=== PATIENT | female | born 1975 | race Caucasian/White ===

== ENCOUNTER 2019-04-28 13:55 | Inpatient (IN) | payer BC ==
[~2019-04-28] VITALS: Ht 170.2 cm; Wt 64.0 kg
--- NOTE | 2019-04-28 14:00 | NUR ---
BIBRA FROM HOME C/O ALTERED PER REPORT PT IS UNRESPONSIVE, LAST KNOWN PER 1 HOUR AGO, BG 140, TO ER BED 11, HOOKED TO EDUCATIONAL INTERPRETER AND POX, CHANGED TO HOSP GOWN, WARM BLABKET PROVIDED, AWAITING MD CH.
--- NOTE | 2019-04-28 14:02 | NUR ---
DR CASTRO AT BEDSIDE
[2019-04-28] MEDS ORDERED: NALOXONE HCL 0.4 MG/ML AMPUL ONE (14:21)
[2019-04-28 14:22] LABS: BASOPHILS % (AUTO) 0.4 % (0.0-2.0); EOSINOPHILS % (AUTO) 0.1 % (0.0-6.0); HEMATOCRIT 42 % (33-45); HEMOGLOBIN 14.3 g/dL (11.5-14.8); LYMPHOCYTES # (AUTO) 1.5 /CMM (0.8-4.8); LYMPHOCYTES % (AUTO) 13.4 % (20.0-44.0); MEAN CORPUSCULAR HGB CONC 34 g/dl (31.0-36.0); MEAN CORPUSCULAR VOLUME 101 fL (82-100); MONOCYTES # (AUTO) 0.8 /CMM (0.1-1.30); MONOCYTES % (AUTO) 7.6 % (2.0-12.0); NEUTROPHILS # (AUTO) 8.5 /CMM (1.8-8.9); NEUTROPHILS % (AUTO) 78.5 % (43.0-81.0); PLATELET COUNT (AUTO) 344 /CMM (150-450); RED BLOOD CELL COUNT(AUTO) 4.21 MIL/uL (4.0-5.2); WHITE BLOOD COUNT (AUTO) 10.8 K/uL (4.3-11.0)
--- NOTE | 2019-04-28 14:26 | NUR ---
NARCAN DISCONTINUED. PT VERBALLY RESPONSIVE
[2019-04-28] MEDS ORDERED: NALOXONE HCL 0.4 MG/ML AMPUL IV ONE (14:30)
[2019-04-28 14:31] LABS: CALCIUM, SERUM 9.2 mg/dL (8.5-10.1); CARBON DIOXIDE 23 mmol/L (21-32); CHLORIDE 99 mmol/L (98-107); GLUCOSE 135 mg/dL (74-106); POTASSIUM 3.7 mmol/L (3.5-5.1); SODIUM SERUM 136 mmol/L (136-145); UREA NITROGEN, BLOOD 11 mg/dL (7-18)
[2019-04-28 14:36] LABS: ALANINE AMINOTRANSFERASE 50 U/L (12-78); ALBUMIN 4.4 g/dL (3.4-5.0); ALKALINE PHOSPHATASE 64 U/L (46-116); ASPARTATE AMINOTRANSFERASE 30 U/L (15-37); BILIRUBIN,DIRECT 0.2 mg/dL (0.0-0.2); BILIRUBIN,TOTAL 0.8 mg/dL (0.2-1.0); TOTAL PROTEIN, SERUM 8.3 g/dL (6.4-8.2)
[2019-04-28 14:41] LABS: APPEARANCE,URINE Turbid (CLEAR); BILIRUBIN,URINE Negative (NEGATIVE); BLOOD, URINE Trace-intact Ery/uL (NEGATIVE); COLOR,URINE Yellow (YELLOW); KETONES,URINE 15 (NEGATIVE); LEUKOCYTE ESTERASE ,URINE Small (NEGATIVE); NITRITE, URINE Negative (NEGATIVE); PH,URINE 6.5 (5.0-8.0); PROTEIN,URINE 30 mg/dl (NEGATIVE); UGLUCOSE Negative (NEGATIVE)
[2019-04-28 14:42] LABS: ACETAMINOPHEN 0 ug/ml (10-30); ALCOHOL, BLOOD < 3 mg/dL (0-0); SALICYLATE < 0.2 mg/dL (2.8-20.0)
[2019-04-28 14:46] LABS: BACTERIA,URINE Many /HPF (None Seen); RBC,URINE 0-2 /HPF (0-2); SQUAMOUS EPITHELIAL CELL,UR Few /HPF (None Seen)
[2019-04-28 14:54] LABS: SERUM AMMONIA 7 umol/L (11-32)
[2019-04-28 15:24] LABS: THYROID STIMULATING HORMONE 21.367 uIU/mL (0.358-3.74)
--- NOTE | 2019-04-28 15:24 | NUR ---
WHEELED OUT VIA WHEELCHAIR TO CT SCAN
--- NOTE | 2019-04-28 15:41 | NUR ---
[facility] PAGED. MAGDALENA POWER NP ON-CALL. AWAITING FOR CALL BACK.
--- NOTE | 2019-04-28 16:42 | NUR ---
NURSING SUP GAVE TELE BED 306-1.
--- NOTE | 2019-04-28 17:16 | NUR ---
CORE JAVA SOFTWARE ENGINEER/MED RECON. UNABLE TO UPDATE HOME MEDICATION. PATIENT AND ANJU () UNABLE TO PROVIDE ANY INFORMATION.
--- NOTE | 2019-04-28 17:18 | NUR ---
REPORT GIVEN TO TERI FELIX. AWAITING TRANSFER TO FLOOR.
[2019-04-28] MEDS ORDERED: Z GUARD REMEDY 2 OZ OINT TP PRN (17:30)
[2019-04-28] MEDS ORDERED: ACETAMINOPHEN 325 MG TABLET PO PRN (17:30)
[2019-04-28] MEDS ORDERED: MAGNESIUM HYDROXIDE 30 ML UDC PO PRN (17:30)
[2019-04-28] MEDS ORDERED: ONDANSETRON HCL/PF 4 MG/2 ML VIAL IVP PRN (17:30)
[2019-04-28] MEDS ORDERED: MAG HYDROX/AL HYDROX/SIMETH 30 ML UDC PO PRN (17:30)
--- NOTE | 2019-04-28 18:15 | NUR ---
MS/RN ADMITTING NOTE Received patient from ER. A/O x0-1, patient has periods where she is alert and verbal and then goes into a state where she stares straight ahead blankly, unable to arouse her from this state. Tele monitor sinus rhythm with prolonged QTC interval. Vital signs 147/103 83 99.7 100% on RA RR 12. IV line in the RFA #24g is clean and intact running NS @75ml/hr. Patient is ambulatory, skin is intact. Tylenol given for low-grade temp. All belongings at bedside. Bed is in lowest position, side rails x3 in upright position, call light is within reach, fall, safety and aspiration precautions enforced. Will endorse to senior database engineer.
[2019-04-28 18:20] VITALS: BP 147/103
[2019-04-28] MEDS: CEFTRIAXONE 1 G in IV D5W 50 ML IV SCH ×2 (18:52→19:01)
[2019-04-28 19:00] VITALS: BP 132/99
--- NOTE | 2019-04-28 19:00 | NUR ---
SHELLFISH FARMING SUPERVISOR OPENING NOTES/ADMISSION NOTES RECEIVED PATIENT IN BED , AWAKE ALERT AND ORIENTED X 1-2, ABLE TO ANSWER A FEW QUESTIONS AND MAKE NEEDS KNOWN AND THAN HAS PERIODS OF POOR CONCENTRATION AND THAN DOES NOT VERBALLY RESPOND AND STAY QUIET FOR A PERIOD OF TIME. DESPITE REORIENTATION. ON CARDIAC TELE MONITORING SR WITH PROLONG QT INTERVAL 95. IV SITE TO RIGHT FA #24G INTACT AND PATENT, NO REDNESS, NO INFILTRATION PRESENT, ABX RUNNING ORDERED, IVF INTACT ORDERED, BODY ASSESSMENT DONE NOTES UPPER POSTERIOR BACK ABRASION. KEPT CLEAN AND DRY. BELONGINGS LIST DONE, ORIENTED TO STAFF AND CALL LIGHT AND KEPT WITHIN REACH , UPON ADMITTING INTERVIEW QUESTION I WAS NOT ABLE TO RECEIVE COMPLETE ANSWERS PATIENT WOULD AT TIMES ANSWER AND AT TIMES WOULD HAVE BLANK STARE AND NOT VERBALLY RESPOND. SAFETY PRECAUTIONS IN PLACE, LOW BED AND LOCKED, BED ALARM IN PLACE, FOR SAFETY , FLUIDS AND TOILETING OFFERED, APPEARS TO BE FREE OF PAIN OR DISCOMFORT, ALL NEEDS ATTENDED WILL CONTINUE TO CLOSELY MONITOR.
[2019-04-28] MEDS: IV NS 0.9% 1,000 ML IV PRN (19:01)
[2019-04-28 20:00] VITALS: BP 132/99
[2019-04-28 23:58] VITALS: BP 141/96
[2019-04-29] VITALS: BP 132/99
[2019-04-29 04:00] VITALS: BP 129/97
[2019-04-29 05:04] VITALS: BP 129/97
--- NOTE | 2019-04-29 06:18 | NUR ---
APPLICATION DEFENSE MANAGER CLOSING NOTES PATIENT IN BED , AWAKE ALERT AND ORIENTED X 1-2,NOTED FORGETFUL, NOTED WITH PERIODS THAT APPEAR TO BE ANXIOUS AND HAS PERIODS OF NOT RESPONDING VERBALLY TO QUESTIONS AND AT TIME ABLE TO ANSWER A FEW QUESTIONS AND MAKE NEEDS KNOWN , HAS PERIODS OF POOR CONCENTRATION AND STAYS QUIET FOR A PERIOD OF TIME. DESPITE REORIENTATION. ON CARDIAC TELE MONITORING SR AND ST WITH PROLONG QT INTERVAL ST WHEN NOTED WITH EPISODES OF ANXIETY. IV SITE TO RIGHT FA #20G INTACT AND PATENT, NO REDNESS, NO INFILTRATION PRESENT, ABX INFUSED NO ASE PRESENT, IVF RUNNING ORDERED. TOILETING SNACKS AND FLUIDS OFFERED AND TOLERATED WELL, ABLE TO AMBULATE STEADY GAIT STANDBY ASSIST. CALL LIGHT KEPT WITHIN REACH ,SAFETY PRECAUTIONS IN PLACE, LOW BED AND LOCKED, BED ALARM IN PLACE, FOR SAFETY , , APPEARS TO BE FREE OF PAIN OR DISCOMFORT, ALL NEEDS ATTENDED WILL CONTINUE TO CLOSELY MONITOR AND EDORSE TO NEXT SHIFT. REMAINS COMFORTABLE.
--- NOTE | 2019-04-29 06:26 | NUR ---
SR 80-[address] AT 120 NOTED WHEN APPEARS TO BE ANXIOUS
[2019-04-29 06:49] LABS: BASOPHILS # (AUTO) 0.1 /CMM (0.0-0.2); BASOPHILS % (AUTO) 0.3 % (0.0-2.0); EOSINOPHILS % (AUTO) 0.2 % (0.0-6.0); HEMATOCRIT 42 % (33-45); HEMOGLOBIN 13.7 g/dL (11.5-14.8); LYMPHOCYTES # (AUTO) 2.6 /CMM (0.8-4.8); LYMPHOCYTES % (AUTO) 16.7 % (20.0-44.0); MEAN CORPUSCULAR HGB CONC 33 g/dl (31.0-36.0); MEAN CORPUSCULAR VOLUME 101 fL (82-100); MONOCYTES # (AUTO) 1.5 /CMM (0.1-1.30); MONOCYTES % (AUTO) 9.4 % (2.0-12.0); NEUTROPHILS # (AUTO) 11.4 /CMM (1.8-8.9); NEUTROPHILS % (AUTO) 73.4 % (43.0-81.0); PLATELET COUNT (AUTO) 341 /CMM (150-450); RED BLOOD CELL COUNT(AUTO) 4.12 MIL/uL (4.0-5.2); WHITE BLOOD COUNT (AUTO) 15.5 K/uL (4.3-11.0)
[2019-04-29 07:05] LABS: CALCIUM, SERUM 8.8 mg/dL (8.5-10.1); CARBON DIOXIDE 20 mmol/L (21-32); CHLORIDE 101 mmol/L (98-107); CREATININE 1.1 mg/dL (0.6-1.3); GLUCOSE 126 mg/dL (74-106); MAGNESIUM 2.5 mg/dL (1.8-2.4); PHOSPHORUS 2.6 mg/dL (2.5-4.9); POTASSIUM 3.9 mmol/L (3.5-5.1); SODIUM SERUM 137 mmol/L (136-145); UREA NITROGEN, BLOOD 11 mg/dL (7-18)
[2019-04-29 07:24] LABS: CHOLESTEROL 198 mg/dL (<200); HDL CHOLESTEROL 69 mg/dL (40-60); LDL 98 mg/dL (0-99); TRIGLYCERIDES 167 mg/dL (30-150)
--- NOTE | 2019-04-29 07:35 | NUR ---
TELE/RN OPENING NOTES RECEIVED PATIENT IN BED. ALERT AND ORIENTED X 2. BREATHING EVEN AND UNLABORED ON 3L NC. SHOWS NO SIGNS OF ACUTE RESPIRATORY DISTRESS, NO ACUTE PAIN. IV ON RFA 20G SL PATENT AND INTACT. SHOWS NO SIGNS OF INFILTRATION, NO REDNESS. TELE MONITOR SINUS TACHY HR 105. SAFETY PRECAUTIONS IN PLACE. BED IN LOWEST POSITION, LOCKED, AND CALL LIGHT KEPT WITHIN REACH. WILL
[2019-04-29 08:00] VITALS: BP 119/98
[2019-04-29] MEDS: IV NS 0.9% 1,000 ML IV PRN (09:20)
[2019-04-29] MEDS: POTASSIUM CHLORIDE 20 MEQ TAB.PRT.SR PO SCH ×3 (09:20→11:04)
--- NOTE | 2019-04-29 10:06 | NUR ---
WOUND CARE CONSULT: PT PRESENTS INDEPENDENT WITH BED MOBILITY AND CONTINENT WITH DRY ABRASION TO UPPER BACK, PRESENT ON ADMISSION. WILL SEE PRN.
--- NOTE | 2019-04-29 10:40 | NUR ---
TELE/RN NOTES PATIENT IS RESTLESS AND ANXIOUS MD IS AWARE. WILL CONTINUE TO MONITOR.
--- NOTE | 2019-04-29 12:51 | NUR ---
TELE/RN NOTES PATIENT SEEN BY PSYCH DOCTOR TODAY.
[2019-04-29 16:00] VITALS: BP 132/90
--- NOTE | 2019-04-29 18:43 | NUR ---
TELE/RN CLOSING NOTES PATIENT IS ON BED. PATIENT IS ALERT ORIENTED X 3. NO APPARENT SHORTNESS OF BREATH NOTED. NO COMPLAINED OF PAIN AT THIS TIME. IV LINE AT RFA 20G INTACT AND PATENT. NO SIGN OF REDNESS ON THE SITE . IVF OF NS 1L AT 75ML/HR ON INFUSING WELL. PATIENT IS ON TELE MONITOR OF SINUS TACHY 105. PATIENT IS ON AND OFF OF ANXIETY AND RESTLESSNESS. SEEN AND EXAMINED BY MD WITH ORDERS MADE AND CARRIED OUT. ALL DUE MEDS WAS GIVEN KEPT PATIENT DRY AND COMFORTABLE. BED IS IN LOWEST POSITION SIDE RAILS UP X2. CALL LIGHT WITHIN REACH. WILL ENDORSED TO ASSISTANT CASE MANAGER FOR TABITHA.
[2019-04-29 20:00] VITALS: BP 145/103
--- NOTE | 2019-04-29 20:00 | NUR ---
TELE/RN OPENING NOTES RECEIVED PATIENT IN BED, WAS TALKING ON THE PHONE AND VERBALIZED INABILITY TO RELAX AND WANTS TO HAVE MD CONTACTED FOR MEDICATION TO CALM HER DOWN. PATIENT BROTHER ALSO CALLED AND REPORTED THAT PATIENT IS IN SEVERE DISTRESS DUE TO PERSONAL CRISIS REPORTED AND IF NO OTHER MEASURES WILL SIGN AMA. DISCUSSED THAT WILL MAKE SURE TO ADDRESS ANY CONCERNS WITH MD AND WILL LET MD AWARE REGARDING PATIENT CONDITION.VITAL SIGNS CHECK 145/103, PULSE 99, R- 18, T- 98.6, ON ROOM AIR AT 99%.AWAITING FOR ORDER.
--- NOTE | 2019-04-29 20:45 | NUR ---
TELE/RN NOTES ,D ORDER FOR BENADRYL 25 MG PO X1 AND WAIT FOR PSYCH CONSULT.
[2019-04-29] MEDS ORDERED: diphenhydrAMINE HCL 25 MG CAPSULE PO ONE (21:00)
--- NOTE | 2019-04-29 21:00 | NUR ---
TELE/RN NOTES PATIENT REFUSES TO TAKE HER MEDICATION THAT SHE HAVE REQUESTED EARLIER.
--- NOTE | 2019-04-29 21:02 | NUR ---
TELE/RN NOTES RECEIVED ORDER FORM PSYCH CONSULT TUNG FOR MEDICATION ATIVAN 0.5 MG PO EVERY 6 HOURS NEEDED , TO ORDER ATIVAN 0.5 MG IVP EVERY 6 HOURS IF CAN NOT TAKE PO. ORDER CARRIED OUT.
--- NOTE | 2019-04-29 21:19 | NUR ---
TELE/RN NOTES MD ORTEGA AND PSYCH TUNG MADE AWARE PATIENT WANTS TO LEAVE AGAINST MEDICAL ADVICE, DISCUSSED WITH PATIENT AND NO HOLD AGAINST PATIENT PER MD, FAMILY INVOLVE. PATIENT SIGNED PAPER.
[2019-04-29] MEDS ORDERED: LORAZEPAM INJ 2 MG/ML VIAL IV PRN (21:30)
[2019-04-29] MEDS ORDERED: LORAZEPAM 0.5 MG TABLET PO PRN (21:30)
--- NOTE | 2019-04-29 21:32 | NUR ---
patient decided to stay for the night. to f/u with .
--- NOTE | 2019-04-29 22:04 | NUR ---
TELE/RN NOTES PATIENT FORGETFUL AND REQUIRE REORIENTATION TO TIME AND PLACE. PROVIDED TIME TO VERBALIZE HER CONCERNS.
--- NOTE | 2019-04-30 00:24 | NUR ---
TELE/RN NOTES PATIENT REFUSED VITAL SIGNS FOR MIDNIGHT.WITH PARANOID AND INABILITY TO COMPLY.
--- NOTE | 2019-04-30 03:44 | NUR ---
TELE/RN NOTES PATIENT AWAKE, ABLE TO ACKNOWLEDGE NURSE BUT REFUSE ANY CARE, OFFERED FOOD, WATER, AND TO KEEP IV FLUIDS M REFUSES AND TALKING TO SELF.
--- NOTE | 2019-04-30 03:57 | NUR ---
TELE/RN NOTES PATIENT ABLE TO VERBALIZE FEELING CONFUSED, AND REORIENTED TO TIME AND PLACE, ABLE TO STATE NAME AND LAST NAME BUT DO NOT REMEMBER DATE OF AND WHY SHE IS IN THE HOSPITAL. ASSISTED AND IN BED. SAFETY MEASURES PROVED. BED LOCKED, CALL LIGHTS WITHIN REACH.
[2019-04-30 04:00] VITALS: BP 138/94
--- NOTE | 2019-04-30 04:16 | NUR ---
TELE/RN NOTES PATIENT DISORIENTED, HAVE REMOVED IV, AND TELE MONITOR. REORIENTED TO TIME AND PLACE, REFUSE IV INSERTION AT THIS TIME. PATIENT WAS ASSISTED AND LEADS WAS PLACED BACK FOR MONITORING.
--- NOTE | 2019-04-30 04:30 | NUR ---
TELE/RN NOTES PATIENT DISORIENTED, UNABLE TO RELAX, ASKING WHERE SHE IS AND WHAT SHE NEEDS TO DO, ABLE TO TAKE HER ATIVAN 0.5MG PO PRESCRIBED WITH WATER TOLERATED WELL. MONITORED FOR SAFETY.
--- NOTE | 2019-04-30 06:16 | NUR ---
TELE/RN NOTES PATIENT MORE CALM AT THIS TIME, RESTING IN BED. RESPIRATIONS EVEN AND UNLABORED, WITH NO S/S OF CHANGE IN BEHAVIOR. MONITORING. ATIVAN 0.5 MG PO WAS GIVEN EARLIER.
--- NOTE | 2019-04-30 06:27 | NUR ---
TELE/RN CLOSING NOTES PATIENT IN BED RESTING IN BED, RESPIRATIONS EVEN AND UNLABORED. ALL NEEDS ATTENDED. KEPT SJIN INTACT AND DRY, BEHAVIOR OBSERVED WITH INCREASING CONFUSION AND DISORIENTATION. SUPERVISED FOR SAFETY. REQUIRE ASSISTANCE IN ADLS, FAMILY INVOLVES. TO ENDORSE TO AM RN FOR TABITHA.IV SITE REMOVED.
[2019-04-30] MEDS ORDERED: LEVOTHYROXINE SODIUM 50 MCG TABLET PO SCH (07:30)
--- NOTE | 2019-04-30 07:48 | NUR ---
TELE/RN OPENING NOTES RECEIVED PATIENT IN BED. ALERT AND ORIENTED X 3. BREATHING EVEN AND UNLABORED ON 3L NC. SHOWS NO SIGNS OF ACUTE RESPIRATORY DISTRESS, NO ACUTE PAIN. PATIENT IS ON TELE MONITOR SINUS TACHY HR 92. SAFETY PRECAUTIONS IN PLACE. BED IN LOWEST POSITION, LOCKED, AND CALL LIGHT KEPT WITHIN REACH. WILL CONTINUE TO MONITOR.
[2019-04-30 08:24] LABS: BASOPHILS % (AUTO) 0.5 % (0.0-2.0); EOSINOPHILS % (AUTO) 0.4 % (0.0-6.0); HEMATOCRIT 39 % (33-45); HEMOGLOBIN 13.2 g/dL (11.5-14.8); LYMPHOCYTES # (AUTO) 1.8 /CMM (0.8-4.8); LYMPHOCYTES % (AUTO) 19.2 % (20.0-44.0); MEAN CORPUSCULAR HGB CONC 34 g/dl (31.0-36.0); MEAN CORPUSCULAR VOLUME 100 fL (82-100); MONOCYTES # (AUTO) 0.8 /CMM (0.1-1.30); MONOCYTES % (AUTO) 9.2 % (2.0-12.0); NEUTROPHILS # (AUTO) 6.5 /CMM (1.8-8.9); NEUTROPHILS % (AUTO) 70.7 % (43.0-81.0); PLATELET COUNT (AUTO) 293 /CMM (150-450); RED BLOOD CELL COUNT(AUTO) 3.84 MIL/uL (4.0-5.2); WHITE BLOOD COUNT (AUTO) 9.2 K/uL (4.3-11.0)
[2019-04-30 08:26] LABS: ALBUMIN 3.8 g/dL (3.4-5.0); BILIRUBIN,TOTAL 0.5 mg/dL (0.2-1.0); CALCIUM, SERUM 8.6 mg/dL (8.5-10.1); CREATININE 0.9 mg/dL (0.6-1.3); MAGNESIUM 2.6 mg/dL (1.8-2.4); PHOSPHORUS 2.5 mg/dL (2.5-4.9); POTASSIUM 3.3 mmol/L (3.5-5.1); TOTAL PROTEIN, SERUM 7.4 g/dL (6.4-8.2)
--- NOTE | 2019-04-30 09:49 | NUR ---
TELE/RN NOTES MAGNESIUM 2.6 POTASSIUM 3.3 MD IS AWARE, WAITING FOR ORDER.
[2019-04-30] MEDS ORDERED: POTASSIUM CHLORIDE 20 MEQ TAB.PRT.SR PO ONE (10:00)
[2019-04-30] MEDS ORDERED: LORAZEPAM 1 MG TABLET PO ONE (10:30)
[2019-04-30 11:16] VITALS: BP 133/92
--- NOTE | 2019-04-30 15:55 | NUR ---
Per Senior Environmental Engineer textile supervisor, Olive Serrano, this SW followed up to do SS consult. The patient is a 43-year old Female receiving inpatient treatment for an altered mental status. Per EMR, the patient was found on the ground unresponsive and the family started CPR". This SW called the patients room to assess the patient as safety measure for COVID-19 (minimal physical interaction encouraged.) The call did not go through. This SW called and spoke the patients nurse, Reena who stated the patient is catatonic. Per Reena, when the patient does verbalize, she presents paranoid and states Please, I dont want to . Promise me that Ill be okay. Per Reena, the patient is not medically cleared and signed to go AMA yesterday. However, patient is still in unit. SW communicated above stated information to Senior Environmental Engineer Radiology Supervisor, Olive. No further action required.
[2019-04-30 16:09] VITALS: BP 126/85
[2019-04-30] MEDS: CEFTRIAXONE 1 G in IV D5W 50 ML IV SCH (18:26)
[2019-04-30] MEDS ORDERED: LORAZEPAM INJ 2 MG/ML VIAL IV PRN (18:30)
[2019-04-30] MEDS ORDERED: LORAZEPAM 0.5 MG TABLET PO PRN (18:30)
--- NOTE | 2019-04-30 19:00 | NUR ---
TELE/RN CLOSING NOTES PATIENT IS ON BED. PATIENT IS ALERT ORIENTED X 3. NO APPARENT SHORTNESS OF BREATH NOTED. NO COMPLAINED OF PAIN AT THIS TIME. PATIENT IS ON TELE MONITOR OF SINUS TACHY 130. PATIENT IS ON AND OFF OF ANXIETY AND RESTLESSNESS. SEEN AND EXAMINED BY MD WITH ORDERS MADE AND CARRIED OUT. ALL DUE MEDS WAS GIVEN KEPT PATIENT DRY AND COMFORTABLE. PATIENT EAT DINNER 100% AND SHE WAS CALM. BED IS IN LOWEST POSITION SIDE RAILS UP X2. CALL LIGHT WITHIN REACH. WILL ENDORSED TO TYPING OFFICE WORKER FOR TABITHA.
--- NOTE | 2019-04-30 19:20 | NUR ---
RN OPENING NOTES RECEIVED PATIENT AWAKE IN BED. A/OX3. NO SIGNS OF DISTRESS OR DISCOMFORT. BREATHING EVEN AND UNLABORED. ON TELE MONITOR WITH ST 122 NOTED. IV ACCESS IN L WRIST, PATENT AND INTACT, NO SIGNS OF REDNESS OR INFILTRATION. BED IN LOW LOCKED POSITION WITH SIDE RAILS X2. CALL LIGHT WITHIN REACH. WILL CONTINUE TO MONITOR.
--- NOTE | 2019-04-30 20:00 | NUR ---
RN NOTES PATIENT REFUSED TO HAVE VITAL SIGNS TAKEN. ATTEMPTED 3X AND PATIENT SAYS "NO" AND CONTINUES TO STARE AT THE CEILING. RISK AND BENEFITS EXPLAINED. WILL CONTINUE TO MONITOR.
--- NOTE | 2019-04-30 23:58 | NUR ---
RN NOTES ADMINISTERED ATIVAN .5MG PO ORDERED FOR ANXIETY. PATIENT PRESENTS CONFUSED AND DISORIENTED. KEEPS STATING "IM SO CONFUSED" "I DON'T KNOW WHAT'S GOING ON" "PLEASE HELP", SHE REMOVED ALL OF HER CLOTHING, HER IV ACCESS AND TELE MONITOR. REORIENTED PATIENT HAD PATIENT PUT ON FRESH GOWN AND REATTACHED MONITOR. WILL CONTINUE TO MONITOR PATIENT FOR SAFETY AND BEHAVIOR.
[2019-05-01] VITALS: BP 141/107
--- NOTE | 2019-05-01 00:10 | NUR ---
RN NOTES PATIENT REMOVED TELE MONITOR AND CLOTHING AGAIN. STATES SHE FEELS LIKE SHE CANT BREATHE WITH CLOTHING AND THE MONITOR ON. SEEMS CONFUSED AND DISORIENTED BUT RESPONDS TO NAME, DATE, TIME, AND LOCATION CORRECTLY. PATIENT REFUSED TO REATTACH MONITOR X3. RISK AND BENEFITS EXPLAINED. WILL CONTINUE TO MONITOR.
[2019-05-01 04:17] VITALS: BP 113/82
[2019-05-01 06:14] LABS: BASOPHILS # (AUTO) 0.1 /CMM (0.0-0.2); BASOPHILS % (AUTO) 0.8 % (0.0-2.0); EOSINOPHILS % (AUTO) 1.1 % (0.0-6.0); HEMATOCRIT 41 % (33-45); HEMOGLOBIN 13.8 g/dL (11.5-14.8); LYMPHOCYTES # (AUTO) 1.9 /CMM (0.8-4.8); LYMPHOCYTES % (AUTO) 20.1 % (20.0-44.0); MEAN CORPUSCULAR HGB CONC 33 g/dl (31.0-36.0); MEAN CORPUSCULAR VOLUME 101 fL (82-100); MONOCYTES # (AUTO) 0.8 /CMM (0.1-1.30); NEUTROPHILS # (AUTO) 6.6 /CMM (1.8-8.9); PLATELET COUNT (AUTO) 313 /CMM (150-450); WHITE BLOOD COUNT (AUTO) 9.5 K/uL (4.3-11.0)
[2019-05-01 06:55] LABS: ALBUMIN 4.1 g/dL (3.4-5.0); BILIRUBIN,TOTAL 0.7 mg/dL (0.2-1.0); CALCIUM, SERUM 9.2 mg/dL (8.5-10.1); MAGNESIUM 2.6 mg/dL (1.8-2.4); PHOSPHORUS 2.6 mg/dL (2.5-4.9); POTASSIUM 3.5 mmol/L (3.5-5.1); TOTAL PROTEIN, SERUM 7.8 g/dL (6.4-8.2)
--- NOTE | 2019-05-01 07:06 | NUR ---
RN CLOSING NOTES PATIENT RESTING IN BED, EASILY AROUSALBE. A/OX3. NO SIGNS OF DISTRESS OR DISCOMFORT. BREATHING EVEN AND UNLABORED. STILL REFUSING TO BE ON TELE MONITOR WITH NO IV ACCESS. PATIENT FAMILY HAS ARRANGED FOR PATIENT TO LEAVE AMA TODAY AT 0830 VIA [facility]. ALL NEEDS MET. NO SIGNIFICANT CHANGES THROUGH THE NIGHT. BED IN LOW LOCKED POSITION WITH SIDE RAILS X2. CALL LIGHT WITHIN REACH. WILL ENDORSE TO AM SHIFT FOR TABITHA.
--- NOTE | 2019-05-01 07:30 | NUR ---
PUBLIC MESSAGE SERVICE SUPERVISOR NOTES PT IN BED, AWAKE, ALERT AND VERBALLY RESPONSIVE, DENIES PAIN, NOT IN DISTRESS, STILL REFUSING TELE MONITORING, NEEDS ATTENDED.
[2019-05-01 08:00] VITALS: BP 145/90
--- NOTE | 2019-05-01 08:49 | NUR ---
INSTRUCTOR FLYING NOTES PT IN BED, AWAKE, ALERT, NO COMPLAINT OF PAIN OR ANY DISCOMFORT, RESPIRATIONS NORMAL, AM VITAL SIGNS TAKEN AND RECORDED, WNL. PT WANTS TO GO AMA, DR. RUBY INFORMED, PT SEEN BY DEANNE TO EVALUATE PT IF HOLD IS NEEDED, PT SIGNED AMA FORM, PT SIGNED BELONGINGS SHEET, FIELD TRAFFIC INVESTIGATOR ASSISTED PT TO HOSPITAL LOBBY WHERE MOM AND A TRANSPORT SERVICE WHICH WAS ARRANGED BY PT'S FAMILY IS WAITING, DR. RUBY, DR. SHELTON AND NURSING LITHOGRAPHIC PHOTOGRAPHER INFORMED.
--- NOTE | 2019-05-01 10:07 | NUR ---
Social Work Note Crisis JOB SERVICE CONSULTANT, Art, states that patient is not meeting 5150 criteria. Family in parking lot with a private ambulance that they ordered. This clinician called [facility] ED and spoke with Tabby FELIX at [facility] ED ([phone]). Advised her that the family were bringing pt. and stated that they had Dr Lion as accepting physician.This life underwriter clarified that [facility] was not arranging transfer.
== END 2019-05-01 08:50 | disposition left against medical advice (07) | DRG 689 ==
LOC: ER 13:56 → TELE 17:11
PROVIDERS: ADMIT Nurse Practitioner Acute Care; ATTEND Nurse Practitioner Acute Care
DX: N39.0 Urinary tract infection, site not specified (principal); G93.41 Metabolic encephalopathy; E03.9 Hypothyroidism, unspecified; I10 Essential (primary) hypertension; E87.6 Hypokalemia; F41.9 Anxiety disorder, unspecified; F41.1 Generalized anxiety disorder; F19.959 Other psychoactive substance use, unspecified with psychoactive substance-induced psychotic disorder, unspecified
CPT/HCPCS: 36415; 70450-TC; 71045-TC; 80048-TC; 80053-TC; 80061-TC; 80076-TC; 80305; 81000-TC; 82140-TC; 83605-TC; 83735-TC; 84100-TC; 84425; 84439-TC; 84443-TC; 84484-TC; 84702-TC; 84703-TC; 85025-TC; 85730-TC; 87040-TC; 87081-TC; 87086-TC; 87186-TC; 93307-TC; 95819-TC; G0378; G0480; J0696; J2060; J2310; J7030; J7060